=== PATIENT | female | born 1990 | race Caucasian/White ===

== ENCOUNTER 2017-10-31 18:26 | Emergency (ER) | payer OTHER ==
[~2017-10-31] VITALS: Ht 182.9 cm; Wt 114.3 kg
[2017-10-31 19:19] LABS: MICROSCOPIC AUTO
[2017-10-31 19:22] LABS: CULTURE INDICATED? YES
[2017-10-31 20:12] LABS: HCG UR SG 1.002 (1.003-1.030)
[2017-10-31] MEDS ORDERED: KETOROLAC 30 MG/1 ML IM ONE (21:00)
[2017-10-31] MEDS ORDERED: METHOCARBAMOL 750 MG TABLET PO ONE (21:00)
[2017-10-31] MEDS ORDERED: KETOROLAC 30 MG/1 ML ONE (21:18)
[2017-10-31 21:32] VITALS: BP 119/71
== END 2017-10-31 21:35 | disposition home or self-care (01) ==
LOC: ED 20:51
DX: M54.5 Low back pain (principal); F17.200 Nicotine dependence, unspecified, uncomplicated
CPT/HCPCS: 72110; 81001; 81025; 87086; 96372; 99285; J1885

== ENCOUNTER 2018-09-20 23:12 | Emergency (ER) | payer OTHER ==
[~2018-09-20] VITALS: Ht 180.3 cm; Wt 116.2 kg
[2018-09-21] MEDS ORDERED: KETOROLAC 30 MG/1 ML IM ONE
[2018-09-21] MEDS ORDERED: ONDANSETRON ODT 4 MG PO ONE
[2018-09-21 00:21] LABS: BASOPHILS # (AUTO) 0.04 x10^3/uL (0-0.1); BASOPHILS % (AUTO) 1 % (0-1); EOSINOPHILS # (AUTO) 0.12 x10^3/uL (0-0.4); EOSINOPHILS % (AUTO) 1 % (1-7); LYMPHOCYTES # (AUTO) 3.32 x10^3/uL (1-3.4); LYMPHOCYTES % (AUTO) 37 % (22-44); MD NO; MEAN CORPUSCULAR HEMOGLOBIN 30.9 pg (27.0-34.8); MEAN CORPUSCULAR HGB CONC 34.9 g/dL (32.4-35.8); MEAN CORPUSCULAR VOLUME 88.5 fL (80-100); MEAN PLATELET VOLUME 8.1 fL (7.4-10.4); MONOCYTES # (AUTO) 0.47 x10^3/uL (0.2-0.8); MONOCYTES % (AUTO) 5 % (2-9); NEUTROPHILS # (AUTO) 5.07 x10^3/uL (1.8-6.8); NEUTROPHILS % (AUTO) 56 % (42-75); PLATELET COUNT 247 x10^3/uL (130-400); RED BLOOD COUNT 4.65 x10^6/uL (3.82-5.3); RED CELL DISTRIBUTION WIDTH 12.9 % (9.6-15.2)
[2018-09-21] MEDS ORDERED: ONDANSETRON ODT 4 MG ONE (00:21)
[2018-09-21] MEDS ORDERED: KETOROLAC 30 MG/1 ML ONE (00:21)
[2018-09-21 00:34] LABS: ALBUMIN 3.3 g/dL (3.4-5.0); ANION GAP 5 mmol/L (5-15); CALCIUM 8.1 mg/dL (8.5-10.1); CHLORIDE 113 mmol/L (98-107)
[2018-09-21 00:37] LABS: ALANINE AMINOTRANSFERASE 19 U/L (12-78); ALKALINE PHOSPHATASE 77 U/L (45-117); BILIRUBIN,TOTAL 0.4 mg/dL (0.2-1.0); CREATININE 0.91 mg/dL (0.55-1.02); TOTAL PROTEIN 7.2 g/dL (6.4-8.2)
[2018-09-21 00:44] LABS: HCG UR SG 1.021 (1.003-1.030); MICROSCOPIC NOT IND
[2018-09-21 00:46] LABS: CULTURE INDICATED? NO
[2018-09-21 01:35] VITALS: BP 109/70
== END 2018-09-21 01:40 | disposition home or self-care (01) ==
LOC: ED 23:23
DX: R10.84 Generalized abdominal pain (principal); F17.200 Nicotine dependence, unspecified, uncomplicated
CPT/HCPCS: 36415; 76700; 80053; 81003; 81025; 83690; 85025; 96372; 99284; J1885; Q0162